=== PATIENT | male | born 1990 | race Caucasian/White ===

== ENCOUNTER 2023-03-02 23:20 | Emergency (ER) | payer SELFPAY ==
[2023-03-02 23:33] VITALS: BP 126/73; PULSE 77; RESP 18; TEMP 98; BMI 30.9
[2023-03-03] MEDS ORDERED: IBUPROFEN 600 MG TABLET (FP) PO ONE ×2 (04:15→04:30)
[2023-03-03] MEDS ORDERED: AMOXICILLIN 500 MG CAPSULE (FP) ONE (04:33)
[2023-03-03] MEDS ORDERED: AMOXICILLIN 500 MG CAPSULE (FP) PO ONE (04:33)
== END 2023-03-03 04:38 | disposition home or self-care (01) ==
LOC: JER 23:20
DX: H92.01 Otalgia, right ear (principal); H66.91 Otitis media, unspecified, right ear
CPT/HCPCS: 99283-25